=== PATIENT | female | born 1970 | race Caucasian/White ===

== ENCOUNTER 2017-01-10 16:43 | Emergency (ER) | payer OTHER ==
[~2017-01-10] VITALS: Ht 162.6 cm; Wt 95.0 kg
[2017-01-10 17:00] VITALS: BP 149/79; PULSE 92; RESP 20; TEMP 98.2; O2SAT 97
[2017-01-10] MEDS ORDERED: MORPHINE SULFATE 4 MG/ML INJ IV PUSH ONE (17:00)
[2017-01-10] MEDS ORDERED: ONDANSETRON HCL 4 MG/2 ML VIAL IV PUSH ONE (17:00)
[2017-01-10] MEDS ORDERED: SIMV40TA PO (17:10)
[2017-01-10] MEDS ORDERED: CETI10CH CHEW (17:10)
[2017-01-10] MEDS ORDERED: OMEP10CA PO (17:10)
[2017-01-10] MEDS ORDERED: ASPI81CH CHEW (17:10)
[2017-01-10] MEDS ORDERED: LISI10TA3 PO (17:10)
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
[2017-01-10 17:53] LABS: AUTOMATED NEUTROPHIL # 6.1 TH/MM3 (1.8-7.7); BASOPHIL # 0.1 TH/MM3 (0-0.2); BASOPHIL % 0.9 % (0.0-2.0); EOSINOPHIL # 0.7 TH/MM3 (0-0.4); EOSINOPHIL % 6.4 % (0.0-4.0); HEMATOCRIT 37.8 % (35.0-46.0); HEMO FLAGS DIFF FINAL; LYMPH % 31.1 % (9.0-44.0); LYMPHOCYTE # 3.5 TH/MM3 (1.0-4.8); MEAN CELL VOLUME 81.7 FL (80.0-100.0); MEAN CORPUSCULAR HEMOGLOBIN 26.4 PG (27.0-34.0); MEAN CORPUSCULAR HGB CONC 32.3 % (32.0-36.0); MONO % 6.7 % (0.0-8.0); NEUT % 54.9 % (16.0-70.0); PLATELET COUNT 347 TH/MM3 (150-450); RED BLOOD COUNT 4.63 MIL/MM3 (4.00-5.30); RED CELL DISTRIBUTION WIDTH 14.5 % (11.6-17.2); WHITE BLOOD COUNT 11.1 TH/MM3 (4.0-11.0)
[2017-01-10] MEDS ORDERED: IOHEXOL 350 MG/ML 10 ML VIAL (for RAD DIAG) IV ONE (18:13)
[2017-01-10 18:16] LABS: ANION GAP 11 MEQ/L (5-15); BICARBONATE 21.2 MEQ/L (21.0-32.0); BLOOD UREA NITROGEN 16 MG/DL (7-18); CHLORIDE 108 MEQ/L (98-107); GLOMERULAR FILTRATION RATE 72 ML/MIN (>89); POTASSIUM 3.9 MEQ/L (3.5-5.1); SODIUM (NA) 140 MEQ/L (136-145)
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
[2017-01-10] MEDS ORDERED: METOCLOPRAMIDE HCL 10 MG/2 ML VIAL IV PUSH ONE (19:30)
[2017-01-10 19:42] VITALS: BP 152/100; PULSE 88; RESP 20; O2SAT 98
[2017-01-10] MEDS ORDERED: ZOFR4TAB PO (19:44)
[2017-01-10] MEDS ORDERED: HYDR-3533 PO (19:44)
[2017-01-10] MEDS ORDERED: IBUP800T23 PO (19:44)
[2017-01-10] MEDS ORDERED: KETOROLAC TROMETHAMINE 30 MG/ML (IVP) VIAL IV PUSH ONE (19:45)
[2017-01-10 20:18] VITALS: BP 143/84
--- NOTE | 2017-01-12 10:05 | EKG ---
Date Performed: 01/10/2017 Time Performed: 17:27:36 PTAGE: 46 years EKG: Sinus rhythm INCOMPLETE RIGHT BUNDLE BRANCH BLOCK BORDERLINE ECG NO PREVIOUS TRACING DOCTOR: Kam Downey Interpretating Date/Time 01/12/2017 09:51:48
== END 2017-01-11 00:15 | disposition home or self-care (01) ==
LOC: NEPD 16:43
DX: S09.90XA Unspecified injury of head, initial encounter (principal); S40.012A Contusion of left shoulder, initial encounter; S20.212A Contusion of left front wall of thorax, initial encounter; S13.4XXA Sprain of ligaments of cervical spine, initial encounter; I10 Essential (primary) hypertension; I45.10 Unspecified right bundle-branch block; R07.9 Chest pain, unspecified; V49.40XA Driver injured in collision with unspecified motor vehicles in traffic accident, initial encounter
CPT/HCPCS: 70450; 71010; 71260; 72125; 72128; 72131; 73030; 74177; 80048; 84484; 85025; 93005; 96374; 96375; 99285; J1885; J2270; J2405; J2765; Q9967

== ENCOUNTER 2017-01-15 10:11 | Emergency (ER) | payer OTHER ==
[~2017-01-15] VITALS: Ht 162.6 cm; Wt 95.0 kg
[~2017-01-15 10:11] MED LIST: ASPI81CH CHEW; CETI10CH CHEW; HYDR-3533 PO; IBUP800T23 PO; LISI10TA3 PO; OMEP10CA PO; SIMV40TA PO; ZOFR4TAB PO
[2017-01-15 10:14] VITALS: BP 177/96; PULSE 70; RESP 24; TEMP 97.8; O2SAT 99
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
[2017-01-15 11:30] VITALS: BP 157/88; PULSE 76; RESP 17; O2SAT 98
[2017-01-15] MEDS ORDERED: diphenhydrAMINE HCL 50 MG/ML VIAL IM ONE (11:30)
[2017-01-15] MEDS ORDERED: PROCHLORPERAZINE INJ 10 MG/2 ML VIAL IM ONE (11:30)
[2017-01-15] MEDS ORDERED: BUTA1CAP PO (12:24)
[2017-01-15] MEDS ORDERED: FLUT1SPR5 EACH NARE (12:24)
== END 2017-01-15 12:33 | disposition home or self-care (01) ==
LOC: NEPD 10:11
DX: G44.319 Acute post-traumatic headache, not intractable (principal); I10 Essential (primary) hypertension
CPT/HCPCS: 96372; 99284; J0780; J1200